=== PATIENT | female | born 1990 | race Caucasian/White ===

== ENCOUNTER 2020-12-10 15:23 | Emergency (ER) | payer OTHER, SELFPAY ==
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
[2020-12-10 15:45] VITALS: BP 115/63; PULSE 79; RESP 16; TEMP 36.4; O2SAT 98; BMI 24.2
[2020-12-10] MEDS: Ketorolac Tromethamine 60 MG/2 ML VIAL IM (16:04)
== END 2020-12-10 18:42 | disposition home or self-care (01) ==
PROVIDERS: Emergency Provider Emergency Medicine Emergency Medical Services
DX: Z04.1 Encounter for examination and observation following transport accident (principal); M54.2 Cervicalgia; R07.9 Chest pain, unspecified
CPT/HCPCS: 70450; 72125; 96372; 96374; 99283; 99284; J1885